=== PATIENT | male | born 1960 | race Two or more races ===

== ENCOUNTER 2016-10-13 09:35 | Emergency (ER) | payer SELFPAY ==
[~2016-10-13] VITALS: Ht 188 cm; Wt 112.1 kg
[2016-10-13] MEDS ORDERED: KETOROLAC 30 MG/1 ML ONE (10:41)
[2016-10-13] MEDS ORDERED: ALBUTEROL SULFATE 2.5 MG/3 ML ONE (10:50)
[2016-10-13] MEDS ORDERED: KETOROLAC 30 MG/1 ML IM ONE (11:00)
[2016-10-13] MEDS ORDERED: ALBUTEROL SULFATE 2.5 MG/3 ML NPPB ONE (11:00)
[2016-10-13 11:13] LABS: BLOOD UREA NITROGEN 22 mg/dL (7-18)
[2016-10-13 11:20] LABS: IS PT STATUS REG ER OR PRE ER? YES
[2016-10-13 11:55] VITALS: BP 120/77
== END 2016-10-13 12:28 | disposition home or self-care (01) ==
LOC: ED 12:22
DX: S29.011A Strain of muscle and tendon of front wall of thorax, initial encounter (principal); R07.9 Chest pain, unspecified; X58.XXXA Exposure to other specified factors, initial encounter; Y93.89 Activity, other specified; Y92.89 Other specified places as the place of occurrence of the external cause; Y99.2 Volunteer activity; Z86.718 Personal history of other venous thrombosis and embolism; Z86.711 Personal history of pulmonary embolism
CPT/HCPCS: 36415; 71010; 80048; 82040; 83880; 84484; 85025; 93005; 99285; J7613